=== PATIENT | female | born 1935 | race African-American/Black ===

== ENCOUNTER → 2017-01-19 | Outpatient (CLI) | payer MEDICARE, MEDICAID ==
[2017-01-19 11:23] LABS: HEMATOCRIT 37.4 % (36.0-47.0); HGB HCT DIFFERENCE -1.4; MEAN CORPUSCULAR HEMOGLOBIN 29.6 pg (27.0-33.4); MEAN CORPUSCULAR VOLUME 92 fl (80-97); RED BLOOD COUNT 4.05 10^6/uL (3.72-5.28); RED CELL DISTRIBUTION WIDTH 14.2 % (11.5-14.0); WHITE BLOOD COUNT 5.2 10^3/uL (4.0-10.5)
[2017-01-19 11:49] LABS: ANION GAP 14 (5-19); BLOOD UREA NITROGEN 16 mg/dL (7-20); CALCIUM 10.2 mg/dL (8.4-10.2); CARBON DIOXIDE 25 mmol/L (22-30); CHLORIDE 105 mmol/L (98-107); CREATININE RESULT 0.83 mg/dL (0.52-1.25); GLUCOSE 103 mg/dL (75-110); SODIUM 143.5 mmol/L (137-145)
== END ==
LOC: OD 10:39
PROVIDERS: ATTEND Internal Medicine Nephrology
DX: I12.9 Hypertensive chronic kidney disease with stage 1 through stage 4 chronic kidney disease, or unspecified chronic kidney disease (principal); N18.2 Chronic kidney disease, stage 2 (mild); E11.9 Type 2 diabetes mellitus without complications; D64.9 Anemia, unspecified
CPT/HCPCS: 36415; 80048; 85027

== ENCOUNTER → 2017-02-26 | Outpatient (CLI) | payer MEDICARE, MEDICAID ==
[2017-02-26 13:09] LABS: ANION GAP 15 (5-19); BLOOD UREA NITROGEN 11 mg/dL (7-20); CALCIUM 9.8 mg/dL (8.4-10.2); CARBON DIOXIDE 26 mmol/L (22-30); CHLORIDE 103 mmol/L (98-107); CREATININE RESULT 0.73 mg/dL (0.52-1.25); GLUCOSE 222 mg/dL (75-110); POTASSIUM 4.2 mmol/L (3.6-5.0); SODIUM 143.7 mmol/L (137-145)
== END ==
LOC: OD 10:32
PROVIDERS: ATTEND Internal Medicine Nephrology
DX: N18.2 Chronic kidney disease, stage 2 (mild) (principal); I12.9 Hypertensive chronic kidney disease with stage 1 through stage 4 chronic kidney disease, or unspecified chronic kidney disease; E11.9 Type 2 diabetes mellitus without complications; D64.9 Anemia, unspecified
CPT/HCPCS: 36415; 80048

== ENCOUNTER → 2017-03-23 | Outpatient (CLI) | payer MEDICARE, MEDICAID ==
--- NOTE | 2017-03-23 16:29 | WOMENS IMAGING REPORT ---
EXAM DESCRIPTION: 3D SCREENING MAMMO BILAT COMPLETED DATE/TIME: 03/23/2017 1:52 pm REASON FOR STUDY: SCREENING MAMMO Z12.31 ENCNTR SCREEN MAMMOGRAM FOR MALIGNANT NEOPLASM OF LUIS COMPARISON: Multiple since 2008 TECHNIQUE: Standard craniocaudal and mediolateral oblique views of each breast recorded using digita l acquisition and breast tomosynthesis. LIMITATIONS: None. FINDINGS: Findings present which are benign by mammographic criteria. No suspicious masses, calcifi cations or architectural distortion. Pertinent benign findings: Stable benign breast parenchymal calcifications and nodules bilaterally. Read with the assistance of CAD. .[facility] - R2 Cenova Version 1.3 .[facility] - R2 Cenova Version 1.3 .[facility] - R2 Cenova Version 2.4 .[facility] - R2 Cenova Version 2.4 .[facility] - R2 Seed Collector Version 9.2 Benign mammographic findings may include one or more of the following: Smooth masses, popcorn/rim/co arse calcifications, asymmetries, post-procedure changes, and lesions with long-standing stability. IMPRESSION: BENIGN MAMMOGRAPHIC FINDINGS. BIRADS 2 BREAST DENSITY: c. The breasts are heterogeneously dense, which may obscure small masses. BIRAD: 2 BENIGN FINDING(S) RECOMMENDATION: RECOMMENDATION: ROUTINE SCREENING Please continue yearly screening tomosynthesis in March 2018 COMMENT: The patient has been notified of the results by letter per SA requirements. Additional no tification policies are in place for contacting patient with suspicious or incomplete findings. Quality ID #[id number]: The [place] [employer] recommends an annual screening mammogram for women aged 40 years or over. This facility utilizes a reminder system to ensure that all patients receive reminder letters, and/or direct phone calls for appointments. This includes reminders for routine scr eening mammograms, diagnostic mammograms, or other Breast Imaging Interventions when appropriate. Th is patient will be placed in the appropriate reminder system. The [place] [employer] (ACR) has developed recommendations for screening MRI of the breast s in certain patient populations, to be used in conjunction with mammography. Breast MRI surveillanc e may be appropriate for women with more than 20% lifetime risk of developing breast cancer as deter mined by genetic testing, significant family history of the disease, or history of mantle radiation f or Hodgkins Disease. ACR Practice Guidelines 2008. DBT Technology DBT is a type of tomographic mammography. With conventional mammography, overlapping breast tissue ma y make lesions difficult to detect, even with good compression. DBT uses an x-ray tube that rotates a round the breast, taking images at different angles. These images are then combined to create thin sl ices of the breast that the radiologist can view as a 3D reconstruction. The [employer] unit can perform full-field digital mammograms (2D imaging); or DBT (3D imaging); or both, in a combination mode that quickly performs both the mammogram and the tomosynthesis scan while the breast is still compressed. RS 6045F: Fluoroscopic imaging is not utilized for breast tomosynthesis. TECHNICAL DOCUMENTATION: FINDING NUMBER: (1) ASSESSMENT: (1) JOB ID: [id number] [employer]- All Rights Reserved
== END ==
LOC: WI 11:32
PROVIDERS: ATTEND Family Medicine
DX: Z12.31 Encounter for screening mammogram for malignant neoplasm of breast (principal)
CPT/HCPCS: 77063; G0202; 77067

== ENCOUNTER 2017-06-15 09:30 | Emergency (ER) | payer MEDICARE, MEDICAID ==
[2017-06-15] MEDS ORDERED: HYDRALAZINE HCL 50 MG TABLET PO ONE (10:02)
--- NOTE | 2017-06-15 10:34 | ER Document Report ---
ED General - General Chief Complaint: High Blood Pressure Stated Complaint: HIGH BLOOD PRESSURE Time Seen by Provider: 06/15/17 10:03 TRAVEL OUTSIDE OF THE [place] IN LAST 30 DAYS: No - HPI Patient complains to provider of: High blood pressure Notes: Patient coming in for elevated blood pressure. Patient otherwise denies any other symptoms however is just concerned that her blood pressure is elevated. Patient states recent changes to her blood pressure last week by her PCP states that she was added states that clonidine was added to her blood pressure regimen. Otherwise patient was recently admitted to the hospital diagnosis of elevated blood pressure sent home on hydralazine combination losartan and amlodipine. At this time only see the valsartan medication and now clonidine for hypertension patient denies any other symptoms denies chest pain head pain shortness of breath - Related Data Allergies/Adverse Reactions: labetalol [Labetalol] Adverse Reaction (Verified 06/15/17 09:35) pronounced bradycardia--30's Past Medical History - Social History Smoking Status: Former Smoker Family History: Reviewed & Not Pertinent, CAD, DM, Hyperlipidemia, Hypertension Patient has suicidal ideation: No Patient has homicidal ideation: No - Past Medical History Cardiac Medical History: Reports: Hx Hypercholesterolemia, Hx Hypertension Endocrine Medical History: Reports: Hx Diabetes Mellitus Type 2 Renal/ Medical History: Denies: Hx Peritoneal Dialysis Psychiatric Medical History: Denies: Hx Depression - Immunizations Hx Diphtheria, Pertussis, Tetanus Vaccination: Yes Review of Systems - Review of Systems Constitutional: Other - Elevated blood pressure EENT: No symptoms reported Cardiovascular: No symptoms reported Respiratory: No symptoms reported Gastrointestinal: No symptoms reported Genitourinary: No symptoms reported Female Genitourinary: No symptoms reported Musculoskeletal: No symptoms reported Skin: No symptoms reported Hematologic/Lymphatic: No symptoms reported Neurological/Psychological: No symptoms reported Physical Exam - Vital signs Vitals: Temp Pulse Resp BP Pulse Ox 97.6 F 74 20 221/83 H 98 06/15/17 09:37 06/15/17 09:37 06/15/17 09:37 06/15/17 09:37 06/15/17 09:37 Interpretation: Hypertensive - General General appearance: Appears well, Alert - HEENT Head: Normocephalic, Atraumatic Eyes: Normal Pupils: PERRL - Respiratory Respiratory status: No respiratory distress Chest status: Nontender Breath sounds: Normal Chest palpation: Normal - Cardiovascular Rhythm: Regular Heart sounds: Normal auscultation Murmur: No - Abdominal Inspection: Normal Distension: No distension Bowel sounds: Normal Tenderness: Nontender Organomegaly: No organomegaly - Back Back: Normal, Nontender - Extremities General upper extremity: Normal inspection, Nontender, Normal color, Normal ROM , Normal temperature General lower extremity: Normal inspection, Nontender, Normal color, Normal ROM , Normal temperature, Normal weight bearing. No: Reynaldo's sign - Neurological Neuro grossly intact: Yes Cognition: Normal Orientation: AAOx4 [employer] Coma Scale Eye Opening: Spontaneous [employer] Coma Scale Verbal: Oriented [employer] Coma Scale Motor: Obeys Commands [employer] Coma Scale Total: 15 Speech: Normal Motor strength normal: LUE, RUE, LLE, RLE Sensory: Normal - Psychological Associated symptoms: Normal affect, Normal mood - Skin Skin Temperature: Warm Skin Moisture: Dry Skin Color: Normal Course - Re-evaluation Re-evalutation: 06/15/17 15:19 Patient with asymptomatic hypertension patient was given a dose of hydralazine which did decrease her blood pressure patient still notes now that she feels better that her blood pressure is lower she is less concerned about it is instructed to follow-up with her primary care physician for further evaluation of her blood pressure and her blood pressure regimen. - Vital Signs Vital signs: Temp Pulse Resp BP Pulse Ox 97.6 F 74 18 185/71 H 97 06/15/17 09:37 06/15/17 09:37 06/15/17 11:01 06/15/17 11:01 06/15/17 11:01 Discharge - Discharge Clinical Impression: Hypertension Qualifiers: Hypertension type: essential hypertension Qualified Code(s): I10 - Essential ( primary) hypertension Disposition: HOME, SELF-CARE Instructions: High Blood Pressure, Requiring Treatment ([facility]) Additional Instructions: Your examination today was normal except for your elevated blood pressure. This has decreased with medications. Highly recommend she follow-up with your primary care physician for further evaluation of your blood pressure. Referrals: JAY COBB MD [Primary Care Provider] - Follow up as needed
[2017-06-15 11:19] VITALS: BP 185/71
== END 2017-06-15 11:27 | disposition home or self-care (01) ==
LOC: ER 09:30
DX: I10 Essential (primary) hypertension (principal); Z79.899 Other long term (current) drug therapy; Z87.891 Personal history of nicotine dependence
CPT/HCPCS: 99283; A9270

== ENCOUNTER → 2017-07-31 | Outpatient (CLI) | payer MEDICARE, MEDICAID ==
[2017-07-31 13:18] LABS: HEMATOCRIT 36.8 % (36.0-47.0); MEAN CORPUSCULAR HEMOGLOBIN 29.7 pg (27.0-33.4); MEAN CORPUSCULAR HGB CONC 32.8 g/dL (32.0-36.0); MEAN CORPUSCULAR VOLUME 91 fl (80-97); PLATELET COUNT 257 10^3/uL (150-450); RED BLOOD COUNT 4.05 10^6/uL (3.72-5.28); RED CELL DISTRIBUTION WIDTH 14.6 % (11.5-14.0)
[2017-07-31 13:46] LABS: ANION GAP 15 (5-19); BLOOD UREA NITROGEN 17 mg/dL (7-20); CALCIUM 10.6 mg/dL (8.4-10.2); CARBON DIOXIDE 26 mmol/L (22-30); CHLORIDE 103 mmol/L (98-107); GLUCOSE 77 mg/dL (75-110); MAGNESIUM 1.8 mg/dL (1.6-2.3); POTASSIUM 4.2 mmol/L (3.6-5.0); SODIUM 143.7 mmol/L (137-145)
[2017-08-01 12:14] LABS: APPEARANCE,URINE SLIGHTLY-CLOUDY; BILIRUBIN,URINE NEGATIVE (NEGATIVE); COLOR,URINE YELLOW; GLUCOSE, URINE NEGATIVE (NEGATIVE); KETONES,URINE NEGATIVE (NEGATIVE); LEUKOCYTE ESTERASE,URINE TRACE (NEGATIVE); NITRITE,URINE NEGATIVE (NEGATIVE); PROTEIN,URINE NEGATIVE (NEGATIVE); URINE SPECIFIC GRAVITY 1.011; UROBILINOGEN,URINE NEGATIVE mg/dL (<2.0)
== END ==
LOC: OD 12:14
PROVIDERS: ATTEND Internal Medicine Nephrology
DX: I12.9 Hypertensive chronic kidney disease with stage 1 through stage 4 chronic kidney disease, or unspecified chronic kidney disease (principal); N18.3 Chronic kidney disease, stage 3 (moderate); E87.5 Hyperkalemia; E11.9 Type 2 diabetes mellitus without complications
CPT/HCPCS: 36415; 80048; 81001; 83735; 85027

== ENCOUNTER → 2018-01-14 | Outpatient (CLI) | payer MEDICARE, MEDICAID ==
[2018-01-14 10:22] LABS: HEMATOCRIT 36.3 % (36.0-47.0); HEMOGLOBIN 12.2 g/dL (12.0-15.5); MEAN CORPUSCULAR HEMOGLOBIN 30.1 pg (27.0-33.4); MEAN CORPUSCULAR HGB CONC 33.6 g/dL (32.0-36.0); MEAN CORPUSCULAR VOLUME 90 fl (80-97); PLATELET COUNT 247 10^3/uL (150-450); RED BLOOD COUNT 4.05 10^6/uL (3.72-5.28); RED CELL DISTRIBUTION WIDTH 14.3 % (11.5-14.0); WHITE BLOOD COUNT 5.1 10^3/uL (4.0-10.5)
[2018-01-14 10:32] LABS: APPEARANCE,URINE SLIGHTLY-CLOUDY; BILIRUBIN,URINE NEGATIVE (NEGATIVE); COLOR,URINE YELLOW; GLUCOSE, URINE NEGATIVE (NEGATIVE); KETONES,URINE NEGATIVE (NEGATIVE); LEUKOCYTE ESTERASE,URINE TRACE (NEGATIVE); NITRITE,URINE NEGATIVE (NEGATIVE); PROTEIN,URINE NEGATIVE (NEGATIVE); URINE SPECIFIC GRAVITY 1.015; UROBILINOGEN,URINE NEGATIVE mg/dL (<2.0)
[2018-01-14 10:53] LABS: ANION GAP 14 (5-19); BLOOD UREA NITROGEN 20 mg/dL (7-20); CALCIUM 10.6 mg/dL (8.4-10.2); CARBON DIOXIDE 28 mmol/L (22-30); CHLORIDE 105 mmol/L (98-107); GLUCOSE 114 mg/dL (75-110); POTASSIUM 4.9 mmol/L (3.6-5.0); SODIUM 146.6 mmol/L (137-145)
== END ==
LOC: OD 09:37
PROVIDERS: ATTEND Internal Medicine Nephrology
DX: I12.9 Hypertensive chronic kidney disease with stage 1 through stage 4 chronic kidney disease, or unspecified chronic kidney disease (principal); N18.2 Chronic kidney disease, stage 2 (mild); E87.5 Hyperkalemia; D64.9 Anemia, unspecified
CPT/HCPCS: 36415; 80048; 81001; 83735; 85027

== ENCOUNTER → 2018-05-14 | Outpatient (CLI) | payer MEDICARE, MEDICAID ==
--- NOTE | 2018-05-14 13:31 | WOMENS IMAGING REPORT ---
EXAM DESCRIPTION: BILAT SCREENING MAMMO W/CAD COMPLETED DATE/TIME: 05/14/2018 12:55 pm REASON FOR STUDY: SCREENING MAMMO Z12.31 ENCNTR SCREEN MAMMOGRAM FOR MALIGNANT NEOPLASM OF LUIS COMPARISON: [id number] TECHNIQUE: Standard craniocaudal and mediolateral oblique views of each breast recorded using digita l acquisition. LIMITATIONS: None. FINDINGS: Findings present which are benign by mammographic criteria. No suspicious masses, calcifi cations or architectural distortion. Pertinent benign findings: Stable calcifications. Read with the assistance of CAD. .[facility] - R2 Cenova Version 1.3 .[facility] - R2 Cenova Version 1.3 .[facility] - R2 Cenova Version 2.4 .[facility] [place] - R2 Cenova Version 2.4 .[facility] - R2 Pier[employer] Specialist Version 9.2 Benign mammographic findings may include one or more of the following: Smooth masses, popcorn/rim/co arse calcifications, asymmetries, post-procedure changes, and lesions with long-standing stability. IMPRESSION: BENIGN MAMMOGRAPHIC FINDINGS. BIRADS 2 BREAST DENSITY: c. The breasts are heterogeneously dense, which may obscure small masses. BIRAD: 2 BENIGN FINDING(S) RECOMMENDATION: ROUTINE SCREENING COMMENT: The patient has been notified of the results by letter per SA requirements. Additional no tification policies are in place for contacting patient with suspicious or incomplete findings. Quality ID #[id number]: The [place] [employer] recommends an annual screening mammogram for women aged 40 years or over. This facility utilizes a reminder system to ensure that all patients receive reminder letters, and/or direct phone calls for appointments. This includes reminders for routine scr eening mammograms, diagnostic mammograms, or other Breast Imaging Interventions when appropriate. Th is patient will be placed in the appropriate reminder system. The [place] [employer] (ACR) has developed recommendations for screening MRI of the breast s in certain patient populations, to be used in conjunction with mammography. Breast MRI surveillanc e may be appropriate for women with more than 20% lifetime risk of developing breast cancer as deter mined by genetic testing, significant family history of the disease, or history of mantle radiation f or Hodgkins Disease. ACR Practice Guidelines 2008. TECHNICAL DOCUMENTATION: FINDING NUMBER: (1) ASSESSMENT: (1) JOB ID: [id number] [employer]- All Rights Reserved Reading location - IP/workstation name: [email or web address]
== END ==
LOC: WI 14:25
PROVIDERS: ATTEND Family Medicine
DX: Z12.31 Encounter for screening mammogram for malignant neoplasm of breast (principal)
CPT/HCPCS: 77067

== ENCOUNTER 2018-12-01 12:46 | Inpatient (IN) | payer MEDICARE, MEDICAID ==
[2018-12-01 13:41] LABS: ABSOLUTE EOSINOPHILS # (AUTO) 0.1 10^3/uL (0.0-0.6); ABSOLUTE LYMPHOCYTES (AUTO) 1.7 10^3/uL (0.5-4.7); ABSOLUTE MONOCYTES (AUTO) 0.6 10^3/uL (0.1-1.4); ABSOLUTE NEUT (AUTO) 2.6 10^3/uL (1.7-8.2); BASOPHILS % (AUTO) 0.7 % (0-2); EOSINOPHILS % (AUTO) 1.7 % (0-6); HEMATOCRIT 36.7 % (36.0-47.0); HEMOGLOBIN 12.1 g/dL (12.0-15.5); LYMPHOCYTES % (AUTO) 33.6 % (13-45); MEAN CORPUSCULAR HEMOGLOBIN 29.8 pg (27.0-33.4); MEAN CORPUSCULAR HGB CONC 32.8 g/dL (32.0-36.0); MEAN CORPUSCULAR VOLUME 91 fl (80-97); MONOCYTES % (AUTO) 12.2 % (3-13); PLATELET COUNT 265 10^3/uL (150-450); RED BLOOD COUNT 4.05 10^6/uL (3.72-5.28); RED CELL DISTRIBUTION WIDTH 14.6 % (11.5-14.0); SEGMENTED NEUTROPHILS % (AUTO) 51.8 % (42-78); TOTAL CELLS COUNTED % (AUTO) 100 %
[2018-12-01 13:46] LABS: ALANINE AMINOTRANSFERASE 9 U/L (9-52); ALBUMIN 4.1 g/dL (3.5-5.0); ALKALINE PHOSPHATASE 76 U/L (38-126); ANION GAP 14 (5-19); ASPARTATE AMINO TRANSFERASE 19 U/L (14-36); BILIRUBIN,DIRECT 0.2 mg/dL (0.0-0.4); BILIRUBIN,TOTAL 0.5 mg/dL (0.2-1.3); BLOOD UREA NITROGEN 16 mg/dL (7-20); CALCIUM 10.4 mg/dL (8.4-10.2); CARBON DIOXIDE 27 mmol/L (22-30); CHLORIDE 105 mmol/L (98-107); CREATINE KINASE 41 U/L (30-135); GLUCOSE 194 mg/dL (75-110); SODIUM 145.7 mmol/L (137-145); TOTAL PROTEIN 8.2 g/dL (6.3-8.2)
[2018-12-01 13:57] LABS: CREATINE KINASE MB 0.42 ng/mL (<4.55)
[2018-12-01 13:59] LABS: TROPONIN I < 0.012 ng/mL
--- NOTE | 2018-12-01 14:20 | RADIOLOGY REPORT (SQ) ---
EXAM DESCRIPTION: CHEST SINGLE VIEW COMPLETED DATE/TIME: 12/01/2018 2:04 pm REASON FOR STUDY: weakness, syncope COMPARISON: 2014 NUMBER OF VIEWS: One view. TECHNIQUE: Single frontal radiographic view of the chest acquired. LIMITATIONS: None. FINDINGS: LUNGS AND PLEURA: Low volumes with patchy infiltrate versus volume loss left lower lobe. No pneumothorax. MEDIASTINUM AND HILAR STRUCTURES: No masses. Contour normal. HEART AND VASCULAR STRUCTURES: Heart normal in size. Normal vasculature. BONES: No acute findings. HARDWARE: None in the chest. OTHER: No other significant finding. IMPRESSION: Left basilar subsegmental atelectasis/ infiltrate TECHNICAL DOCUMENTATION: JOB ID: [id number] [employer]- All Rights Reserved Reading location - IP/workstation name: [email or web address]
--- NOTE | 2018-12-01 14:37 | ER Document Report ---
ED Dizziness/Weakness - General Chief Complaint: Weakness Stated Complaint: SYNCOPE Time Seen by Provider: 12/01/18 12:56 Mode of Arrival: Medic Information source: Patient, Relative - Daughter Notes: Patient is an 83-year-old female presenting to the emergency department chief complaint of dizziness and weakness that started yesterday. Patient reports she was feeling mildly improved this morning so she decided to go to [facility]. At [facility] she apparently had a syncopal episode. Per family at bedside states that someone caught her so she did not strike her head. Patient denies any fevers, nausea, vomiting or diarrhea. Patient denies any chest pain or shortness of breath. TRAVEL OUTSIDE OF THE [place] IN LAST 30 DAYS: No - Related Data Allergies/Adverse Reactions: labetalol [Labetalol] Adverse Reaction (Verified 06/15/17 09:35) pronounced bradycardia--30's Past Medical History - General Information source: Patient - Social History Smoking Status: Never Smoker Frequency of alcohol use: None Drug Abuse: None Family History: Reviewed & Not Pertinent, CAD, DM, Hyperlipidemia, Hypertension Patient has suicidal ideation: No Patient has homicidal ideation: No - Past Medical History Cardiac Medical History: Reports: Hx Hypercholesterolemia, Hx Hypertension Endocrine Medical History: Reports: Hx Diabetes Mellitus Type 2 Renal/ Medical History: Denies: Hx Peritoneal Dialysis Psychiatric Medical History: Denies: Hx Depression - Immunizations Hx Diphtheria, Pertussis, Tetanus Vaccination: Yes Review of Systems - Review of Systems Constitutional: Weakness EENT: No symptoms reported Cardiovascular: Dizziness Respiratory: No symptoms reported Gastrointestinal: No symptoms reported Genitourinary: No symptoms reported Female Genitourinary: No symptoms reported Musculoskeletal: No symptoms reported Skin: No symptoms reported Hematologic/Lymphatic: No symptoms reported Neurological/Psychological: No symptoms reported Physical Exam - Vital signs Vitals: Temp Resp 97.5 F 19 12/01/18 13:01 12/01/18 13:01 - Notes Notes: PHYSICAL EXAMINATION: GENERAL: Well-appearing, well-nourished and in no acute distress. HEAD: Atraumatic, normocephalic. EYES: Pupils equal round and reactive to light, extraocular movements intact, conjunctiva are normal. ENT: Nares patent, oropharynx clear without exudates. Moist mucous membranes. NECK: Normal range of motion, supple without lymphadenopathy LUNGS: Breath sounds clear to auscultation bilaterally and equal. No wheezes rales or rhonchi. HEART: Regular rate and rhythm without murmurs ABDOMEN: Soft, nontender, nondistended abdomen. No guarding, no rebound. No masses appreciated. Female : deferred Musculoskeletal: Normal range of motion, no pitting or edema. No cyanosis. NEUROLOGICAL: Cranial nerves grossly intact. Normal speech. Normal sensory, motor exams PSYCH: Normal mood, normal affect. SKIN: Warm, Dry, normal turgor, no rashes or lesions noted. Course - Re-evaluation Re-evalutation: Patient appears well, nontoxic and is alert and interactive. Patient reports feeling dizziness since yesterday. EKG was reviewed and interpreted by me, EKG shows a sinus rhythm, rate of 71, QTc 413, no ST segment elevations or depressions to suggest ischemia. CBC and CMP are unremarkable, troponin is negative. Chest x-ray shows possible left basilar infiltrate. Will start patient on Rocephin and azithromycin IV. Plan to call hospitalist for admiss ion. Patient continues to feel well, states she feels better since arrival and after receiving 500 mL's of IV fluids. She has still not provided us a urine sample. Head CT was ordered and is negative, patient accepted for admission to [facility]. - Vital Signs Vital signs: Temp Pulse Resp BP Pulse Ox 97.7 F 63 18 162/71 H 100 12/02/18 07:53 12/02/18 08:00 12/02/18 08:00 12/02/18 08:00 12/02/18 08:00 - Laboratory Result Diagrams: 12/02/18 06:15 12/02/18 06:15 Laboratory results interpreted by me: 12/01/18 12/01/18 13:06 13:06 RDW 14.6 H Sodium 145.7 H Creatinine 1.58 H Est GFR ( Amer) 38 L Est GFR (Non-Af Amer) 31 L Glucose 194 H Calcium 10.4 H Discharge - Discharge Clinical Impression: Pneumonia Qualifiers: Pneumonia type: due to unspecified organism Laterality: left Lung location: unspecified part of lung Qualified Code(s): J18.9 - Pneumonia, unspecified organism Syncopal episodes Qualifiers: Syncope type: unspecified Qualified Code(s): R55 - Syncope and collapse Condition: Stable Disposition: ADMITTED INPATIENT Admitting Provider: Funmilayo (Hospitalist) Unit Admitted: IMCU
[2018-12-01] MEDS ORDERED: AZITHROMYCIN INJ 500 MG VIAL IV ONE (14:41)
[2018-12-01] MEDS ORDERED: CEFTRIAXONE 1 GM/D5W RTU 1 GM/50 ML RTUPB IV ONE (14:41)
--- NOTE | 2018-12-01 15:25 | RADIOLOGY REPORT (SQ) ---
EXAM DESCRIPTION: CT HEAD WITHOUT COMPLETED DATE/TIME: 12/01/2018 3:14 pm REASON FOR STUDY: syncope COMPARISON: 2014 TECHNIQUE: Axial images acquired through the brain without intravenous contrast. Images reviewed wi th bone, brain and subdural windows. Images stored on PACS. All CT scanners at this facility use dose modulation, iterative reconstruction, and/or weight based d osing when appropriate to reduce radiation dose to as low as reasonably achievable (ALARA). [facility]: Dose Right [facility]: SureCare [facility]: Dose Right [facility]: Teradose 4D [facility]: [employer] RADIATION DOSE: CT Rad equipment meets quality standard of care and radiation dose reduction techniq ues were employed. CTDIvol: 53.2 mGy. DLP: 1097 mGy-cm. mGy. LIMITATIONS: None. FINDINGS: VENTRICLES: Normal size and contour. CEREBRUM: No mass effect. No hemorrhage. No midline shift. Normal hector/white matter differentiatio n. No evidence for acute territorial infarction. CEREBELLUM: No mass effect. No hemorrhage. No alteration of density. No evidence for acute infarct ion. EXTRAAXIAL SPACES: Chronic asymmetric prominence of CSF density fluid along the left cerebrum. This is unchanged. Probable mild chronic hygroma or asymmetric atrophy. ORBITS AND GLOBE: Symmetrical contour of the globes. CALVARIUM: No depressed skull fracture. PARANASAL SINUSES: No air-fluid level. SOFT TISSUES: No hematoma. IMPRESSION: Chronic changes. No acute intracranial abnormality. TECHNICAL DOCUMENTATION: JOB ID: [id number] [id number]: Final reports with documentation of one or more dose reduction techniques (e.g., Automate d exposure control, adjustment of the mA and/or kV according to patient size, use of iterative recons truction technique) 2010 [employer]- All Rights Reserved Reading location - IP/workstation name: [email or web address]
[2018-12-01] MEDS ORDERED: NORMAL SALINE 1000 ML 1,000 ML IV ONE (15:29)
[2018-12-01 19:28] LABS: APPEARANCE,URINE CLOUDY; BILIRUBIN,URINE NEGATIVE (NEGATIVE); GLUCOSE, URINE NEGATIVE (NEGATIVE); KETONES,URINE NEGATIVE (NEGATIVE); LEUKOCYTE ESTERASE,URINE MODERATE (NEGATIVE); NITRITE,URINE NEGATIVE (NEGATIVE); PROTEIN,URINE 30 mg/dL (NEGATIVE); URINE SPECIFIC GRAVITY 1.015; UROBILINOGEN,URINE NEGATIVE mg/dL (<2.0)
[2018-12-01 19:30] LABS: COLOR,URINE DARK YELLOW
--- NOTE | 2018-12-01 19:31 | RADIOLOGY REPORT (SQ) ---
EXAM DESCRIPTION: MRI HEAD WITHOUT COMPLETED DATE/TIME: 12/01/2018 6:39 pm REASON FOR STUDY: eval for cva COMPARISON: CT from earlier. TECHNIQUE: Multiplanar imaging includes non-contrasted T1, T2, FLAIR, and Diffusion with ADC map seq uences. Images stored on PACS. LIMITATIONS: None. FINDINGS: ANATOMY: No anomalies. Normal vascular flow voids. Pituitary fossa normal. CSF SPACES: Chronic asymmetric left cerebral atrophy or hygroma, as seen previously. No extra-axial hemorrhage or mass. CEREBRUM: A few high-signal intensity lesions scattered throughout the white matter on FLAIR imaging with distribution suggesting chronic micro-vascular ischemic change. Sulci and gyri normal in size a nd contour. No evidence of hemorrhage, mass or extraaxial fluid collection. POSTERIOR FOSSA: No signal alteration. No hemorrhage. No edema, masses or mass effect. Internal levar tory canals, cerebello-pontine angles, mastoids normal. DIFFUSION: Negative for acute or sub-acute infarction. ORBITS: No masses. Globes normal. PARANASAL SINUSES: No fluid levels. Mucosa normal. OTHER: No other significant finding. IMPRESSION: No acute intracranial abnormality. Chronic changes. No recent CVA. EVIDENCE OF ACUTE STROKE: NO. TECHNICAL DOCUMENTATION: JOB ID: [id number] [employer]- All Rights Reserved Reading location - IP/workstation name: [email or web address]
[2018-12-01] MEDS ORDERED: DEXTROSE 40% GEL 15 GM TUBE PO PRN ×2 (20:20)
[2018-12-01] MEDS ORDERED: GLUCAGON,HUMAN RECOMB 1 MG INJ IM PRN (20:20)
[2018-12-01] MEDS ORDERED: DEXTROSE 50%-WATER 25 GM/50 ML DISP.SYRIN IV PRN ×2 (20:20)
[2018-12-01] MEDS ORDERED: HYDRALAZINE HCL INJ/PF 20 MG/1 ML SDV IV PRN (20:37)
--- NOTE | 2018-12-01 20:45 | PDOC H&P ---
History of Present Illness Admission Date/PCP: 12/01/18 16:16 JAY COBB MD Patient complains of: SYNCOPE History of Present Illness: KEELEY COREA is a 83 year old female with a PMH of HTN, HLD, DM, R carotid endarterectomy. She presented to the ED following a syncopal episode while at [facility] today. The patient reports weakness and fatigue for the last 48 hours. She went to [facility] but quickly began to feel ill, she asked family to take her home. While exiting the dru[facility] the patient became unconscious, her family was able to catch her and gently put her on the ground. No head trauma or seizure- like activity. Upon arrival to the ED, the patient's laboratory studies reveal HYPERnatremia (Na 145) and ABY (Creatinine 1.5). Cardiac enzymes and all other labs were relatively benign. Head CT normal. EKG shows NSR. CXR shows possible LLL PNA. The patient was started on Azithromycin and Rocephin for community Acquired PNA. She was admitted to the hospitalist service for PNA and syncope workup. On exam, the patient is awake an oriented. 5/5 strength in all extremities. No facial droop, no pronator drift, no hand/eye coordination deficits. Lungs are CTA. S1S2. No peripheral edema noted. Past Medical History Cardiac Medical History: Reports: Hyperlipidema, Hypertension Endocrine Medical History: Reports: Diabetes Mellitus Type 2 Psychiatric Medical History: Denies: Depression Past Surgical History Past Surgical History: Reports: None Social History Information Source: Patient Lives with: Family Smoking Status: Never Smoker Frequency of Alcohol Use: None Hx Recreational Drug Use: No Drugs: None Hx Prescription Drug Abuse: No - Advance Directive Resuscitation Status: Full Code Family History Family History: Reviewed & Not Pertinent, CAD, DM, Hyperlipidemia, Hypertension Parental Family History Reviewed: Yes Children Family History Reviewed: Yes Sibling(s) Family History Reviewed.: Yes Medication/Allergy Home Medications: Metformin HCl [Glucophage] 1,000 mg PO BID 05/31/14 Amlodipine Besylate [Norvasc 10 mg Tablet] 10 mg PO QHS #30 tablet 12/25/14 Atorvastatin Calcium [Lipitor 10 mg Tablet] 10 mg PO QHS 12/01/18 Clonidine HCl [Catapres 0.2 mg Tablet] 0.2 mg PO BID 12/01/18 Ubidecarenone/Vit E Acet [Co Q-10 100 mg Softgel] 1 each PO DAILY 12/01/18 Allergies/Adverse Reactions: labetalol [Labetalol] Adverse Reaction (Verified 06/15/17 09:35) pronounced bradycardia--30's Review of Systems Constitutional: PRESENT: fatigue, weakness. ABSENT: fever(s), headache(s) Eyes: ABSENT: visual disturbances Ears: ABSENT: hearing changes Nose, Mouth, and Throat: ABSENT: headache(s), sore throat Cardiovascular: ABSENT: chest pain, dyspnea on exertion, edema, orthropnea, palpitations Respiratory: ABSENT: cough, dyspnea Gastrointestinal: ABSENT: abdominal pain, nausea, vomiting Genitourinary: ABSENT: dysuria Musculoskeletal: PRESENT: muscle weakness Integumentary: ABSENT: diaphoresis Neurological: PRESENT: syncope, weakness. ABSENT: paresthesias Psychiatric: ABSENT: anxiety, depression Endocrine: ABSENT: cold intolerance, heat intolerance Physical Exam Vital Signs: Temp Pulse Resp BP Pulse Ox 97.5 F 65 18 135/78 H 100 12/01/18 13:01 12/01/18 16:00 12/01/18 16:02 12/01/18 16:02 12/01/18 16:02 Intake & Output 11/30/18 12/01/18 12/02/18 06:59 06:59 06:59 Intake Total 1050 Balance 1050 Weight 74.843 kg General appearance: PRESENT: well-developed, well-nourished Head exam: PRESENT: atraumatic Eye exam: PRESENT: conjunctiva pink, PERRLA Mouth exam: PRESENT: moist, tongue midline Teeth exam: PRESENT: other - dentures Neck exam: PRESENT: full ROM Respiratory exam: PRESENT: clear to auscultation christina, symmetrical, unlabored Cardiovascular exam: PRESENT: RRR Pulses: PRESENT: normal radial pulses, normal dorsalis pedis pul Vascular exam: PRESENT: normal capillary refill GI/Abdominal exam: PRESENT: normal bowel sounds, soft. ABSENT: distended, tenderness Rectal exam: PRESENT: deferred Extremities exam: PRESENT: full ROM. ABSENT: pedal edema Musculoskeletal exam: PRESENT: full ROM, normal inspection. ABSENT: deformity Neurological exam: PRESENT: alert, awake, oriented to person, oriented to place, oriented to time, oriented to situation Psychiatric exam: PRESENT: appropriate affect Skin exam: PRESENT: dry, intact, normal color Results Laboratory Results: 12/01/18 13:06 12/01/18 13:06 12/01/18 12/01/18 13:06 13:06 WBC 5.0 RBC 4.05 Hgb 12.1 Hct 36.7 MCV 91 MCH 29.8 MCHC 32.8 RDW 14.6 H Plt Count 265 Seg Neutrophils % 51.8 Lymphocytes % 33.6 Monocytes % 12.2 Eosinophils % 1.7 Basophils % 0.7 Absolute Neutrophils 2.6 Absolute Lymphocytes 1.7 Absolute Monocytes 0.6 Absolute Eosinophils 0.1 Absolute Basophils 0.0 Sodium 145.7 H Potassium 4.0 Chloride 105 Carbon Dioxide 27 Anion Gap 14 BUN 16 Creatinine 1.58 H Est GFR ( Amer) 38 L Est GFR (Non-Af Amer) 31 L Glucose 194 H Calcium 10.4 H Total Bilirubin 0.5 AST 19 ALT 9 Alkaline Phosphatase 76 Total Protein 8.2 Albumin 4.1 12/01/18 12/01/18 13:06 13:06 Creatine Kinase 41 CK-MB (CK-2) 0.42 Troponin I < 0.012 Impressions: Chest X-Ray 12/01/18 13:08 IMPRESSION: Left basilar subsegmental atelectasis/ infiltrate Head CT 12/01/18 15:01 IMPRESSION: Chronic changes. No acute intracranial abnormality. Status: Imported from PACS Assessment and Plan - Diagnosis (1) Syncope Qualifiers: Syncope type: unspecified Qualified Code(s): R55 - Syncope and collapse Is this a current diagnosis for this admission?: Yes Plan: LOC while at [facility] today Possibly due to dehydration given her hypernatremia, ABY and possible infection No head trauma Head CT negative Head MRI pending Carotid doppler pending Admit to [facility] exam q4h (2) HTN (hypertension) Qualifiers: Hypertension type: essential hypertension Qualified Code(s): I10 - Essential (primary) hypertension Is this a current diagnosis for this admission?: Yes Plan: PMH HTN Continue a home dose amlodipine and Clonidine (3) Pneumonia Qualifiers: Pneumonia type: due to unspecified organism Laterality: left Lung location: unspecified part of lung Qualified Code(s): J18.9 - Pneumonia, unspecified organism Is this a current diagnosis for this admission?: Yes Plan: LLL PNA seen on CXR Community acquired PNA Lungs CTA Afebrile. No leukocytosis. Treat with azithromycin and rocephin IV Sputum culture pending (4) DM w/o complication type II Is this a current diagnosis for this admission?: Yes Plan: PMH DM Check HgbA1c in AM Humalog ACHS Humalog sliding scale insulin Diabetic diet (5) ABY (acute kidney injury) Is this a current diagnosis for this admission?: Yes Plan: Secondary to dehydration and infection Baseline creatinine < 1.0, currently 1.5 IVF @ 75mL/hr Daily chemistries (6) Hypernatremia Is this a current diagnosis for this admission?: Yes Plan: Secondary to dehydration IVF @ 75mL/hr Daily chemistries - Time Time Spent with patient: 15-24 minutes Medications reviewed and adjusted accordingly: Yes Anticipated discharge: Home - Inpatient Certification Based on my medical assessment, after consideration of the patient's comorbidities, presenting symptoms, or acuity I expect that the services needed warrant INPATIENT care.: Yes I certify that my determination is in accordance with my understanding of Medicare's requirements for reasonable and necessary INPATIENT services [42 CFR 412.3e].: Yes Medical Necessity: Risk of Complication if Not Cared For in Hospital
[2018-12-01] MEDS: CLONIDINE HCL 0.2 MG TABLET PO SCH (21:11)
[2018-12-01] MEDS: INSULIN LISPRO 100 UNIT/ML 3 ML VIAL SUBCUT SCH (21:27)
[2018-12-01] MEDS ORDERED: FAMOTIDINE 20 MG TABLET PO SCH (22:00)
[2018-12-01] MEDS ORDERED: AMLODIPINE BESYLATE 10 MG TABLET PO SCH (22:00)
[2018-12-01] MEDS ORDERED: ATORVASTATIN CALCIUM 10 MG TABLET PO SCH (22:00)
--- NOTE | 2018-12-01 23:50 | EKG REPORT ---
SEVERITY:- BORDERLINE ECG - SINUS RHYTHM BORDERLINE R WAVE PROGRESSION, ANTERIOR LEADS BORDERLINE T ABNORMALITIES, ANT-LAT LEADS : Confirmed by: Chelita Salamanca MD 01-Dec-2018 23:50:10
[2018-12-02 06:49] LABS: HEMATOCRIT 33.7 % (36.0-47.0); HEMOGLOBIN 10.9 g/dL (12.0-15.5); MEAN CORPUSCULAR HEMOGLOBIN 29.2 pg (27.0-33.4); MEAN CORPUSCULAR HGB CONC 32.5 g/dL (32.0-36.0); MEAN CORPUSCULAR VOLUME 90 fl (80-97); PLATELET COUNT 188 10^3/uL (150-450); RED BLOOD COUNT 3.74 10^6/uL (3.72-5.28); RED CELL DISTRIBUTION WIDTH 14.5 % (11.5-14.0); WHITE BLOOD COUNT 4.9 10^3/uL (4.0-10.5)
[2018-12-02 07:14] LABS: ALANINE AMINOTRANSFERASE 14 U/L (9-52); ALBUMIN 3.6 g/dL (3.5-5.0); ALKALINE PHOSPHATASE 69 U/L (38-126); ANION GAP 11 (5-19); ASPARTATE AMINO TRANSFERASE 18 U/L (14-36); BILIRUBIN,DIRECT 0.2 mg/dL (0.0-0.4); BILIRUBIN,TOTAL 0.6 mg/dL (0.2-1.3); BLOOD UREA NITROGEN 16 mg/dL (7-20); CALCIUM 9.6 mg/dL (8.4-10.2); CARBON DIOXIDE 27 mmol/L (22-30); CHLORIDE 106 mmol/L (98-107); CHOLESTEROL 107.14 mg/dL (0-200); GLUCOSE 101 mg/dL (75-110); POTASSIUM 4.1 mmol/L (3.6-5.0); SODIUM 143.7 mmol/L (137-145); TOTAL PROTEIN 7.5 g/dL (6.3-8.2); TRIGLYCERIDES 82 mg/dL (<150)
[2018-12-02 07:24] LABS: DIRECT LDL 48 mg/dL (<100)
--- NOTE | 2018-12-02 07:59 | EKG REPORT ---
SEVERITY:- ABNORMAL ECG - SINUS RHYTHM CONSIDER ANTERIOR INFARCT NONSPECIFIC ST-T CHANGES LATERAL LEADS. : Confirmed by: Nic Cooley MD 02-Dec-2018 07:59:02
[2018-12-02] MEDS: INSULIN LISPRO 100 UNIT/ML 3 ML VIAL SUBCUT SCH ×3 (08:20→16:14)
[2018-12-02] MEDS: CLONIDINE HCL 0.2 MG TABLET PO SCH ×2 (09:10→17:39)
[2018-12-02] MEDS ORDERED: CEFTRIAXONE 1 GM/D5W RTU 1 GM/50 ML RTUPB IV SCH (10:00)
[2018-12-02] MEDS ORDERED: ASPIRIN 81 MG TABLET, ENT COATED PO SCH (10:00)
[2018-12-02] MEDS ORDERED: AZITHROMYCIN 500 MG in DEXTROSE 5%-WATER 250 ML IV SCH (10:00)
[2018-12-02] MEDS ORDERED: ENOXAPARIN SODIUM INJ 30 MG/0.3 ML DISP.SYRIN SUBCUT SCH (10:00)
[2018-12-02] MEDS ORDERED: CEFTRIAXONE SODIUM 1,000 MG in DEXTROSE 5%-WATER 50 ML IV SCH (10:00)
--- NOTE | 2018-12-02 14:10 | RADIOLOGY REPORT (SQ) ---
EXAM DESCRIPTION: CAROTID DOPPLER COMPLETED DATE/TIME: 12/02/2018 1:45 pm REASON FOR STUDY: syncope COMPARISON: 06/07/2011 TECHNIQUE: Grayscale ultrasound, Doppler velocity and spectra, and color Doppler images acquired of the extra-cranial carotid and vertebral arteries. Images stored on PACS. LIMITATIONS: None. FINDINGS: RIGHT CAROTID CCA Velocities: Within normal limits. ICA Velocities Peak systolic 68 cm/s. End diastolic 17 cm/s. Proximal ICA/CCA peak systolic ratio 1. Spectra normal. No significant plaque. LEFT CAROTID CCA Velocities: Within normal limits. ICA Velocities Peak systolic 66 cm/s. End diastolic 21 cm/s. Proximal ICA/CCA peak systolic ratio 0.87. Spectra normal. No significant plaque. VERTEBRAL ARTERIES: Antegrade flow. Normal waveforms. SUBCLAVIAN ARTERIES: No finding. OTHER: No other significant finding. IMPRESSION: NO HEMODYNAMICALLY SIGNIFICANT STENOSIS. COMMENT: Quality ID #195: Velocity criteria are extrapolated from the diameter data as defined by t he Society of Radiologists in Ultrasound Consensus Conference. Radiology 2003: 229; 340-346. TECHNICAL DOCUMENTATION: JOB ID: [id number] [employer]- All Rights Reserved Reading location - IP/workstation name: [email or web address]
[2018-12-02 16:43] VITALS: BP 135/57
[2018-12-02] MEDS ORDERED: FAMOTIDINE 20 MG TABLET PO SCH (22:00)
--- NOTE | 2018-12-11 21:33 | PDOC DISCHARGE SUMMARY ---
General - Admit/Disc Date/PCP Admission Date/Primary Care Provider: 12/01/18 16:16 JAY COBB MD Discharge Date: 12/02/18 - Discharge Diagnosis (1) Syncope Is this a current diagnosis for this admission?: Yes (2) HTN (hypertension) Is this a current diagnosis for this admission?: Yes (3) Pneumonia Is this a current diagnosis for this admission?: Yes (4) DM w/o complication type II Is this a current diagnosis for this admission?: Yes (5) ABY (acute kidney injury) Is this a current diagnosis for this admission?: Yes (6) Hypernatremia Is this a current diagnosis for this admission?: Yes - Additional Information Resuscitation Status: Full Code Discharge Diet: As Tolerated Discharge Activity: Activity As Tolerated Home Medications: Metformin HCl [Glucophage] 1,000 mg PO BID 05/31/14 Amlodipine Besylate [Norvasc 10 mg Tablet] 10 mg PO QHS #30 tablet 12/25/14 Atorvastatin Calcium [Lipitor 10 mg Tablet] 10 mg PO QHS 12/01/18 Clonidine HCl [Catapres 0.2 mg Tablet] 0.2 mg PO BID 12/01/18 Ubidecarenone/Vit E Acet [Co Q-10 100 mg Softgel] 1 each PO DAILY 12/01/18 Famotidine [Pepcid 20 mg Tablet] 20 mg PO QHS tablet 12/02/18 Insulin Lispro [Humalog Insulin (Lispro) 100 unit/mL] 0 - 12 unit SUBCUT ACHS unit 12/02/18 History of Present Illness History of Present Illness: KEELEY COREA is a 83 year old female with a PMH of HTN, HLD, DM, R carotid endarterectomy. She presented to the ED following a syncopal episode while at [facility] today. The patient reports weakness and fatigue for the last 48 hours. She went to [facility]dhism but quickly began to feel ill, she asked family to take her home. While exiting the buddhism the patient became unconscious, her family was able to catch her and gently put her on the ground. No head trauma or seizure- like activity. Upon arrival to the ED, the patient's laboratory studies reveal HYPERnatremia (Na 145) and ABY (Creatinine 1.5). Cardiac enzymes and all other labs were relatively benign. Head CT normal. EKG shows NSR. CXR shows possible LLL PNA. The patient was started on Azithromycin and Rocephin for community Acquired PNA. She was admitted to the hospitalist service for PNA and syncope workup. On exam, the patient is awake an oriented. 5/5 strength in all extremities. No facial droop, no pronator drift, no hand/eye coordination deficits. Lungs are CTA. S1S2. No peripheral edema noted. Hospital Course Hospital Course: KEELEY COREA is a 83 year old female with a PMH of HTN, HLD, DM, R carotid endarterectomy. [facility] a syncopal episode. +LOC, no head trauma. It was discovered on CXR that the patient had PNA, she was started on Azithromycin and Rocephin for community acquired PNA. Head CT, MRI, and carotid doppler studies were all WNL. Laboratory studies were benign. Her physical exam was completely normal with the exception of mild rhonci heard over the LLL and trace pedal edema. Within 36 hours of admission, the patient was sent home with a prescription for levaquin to complete her treatment regimen for CAP. The patient was advised to follow up with her PCP within 1-2 weeks. Physical Exam Vital Signs: Temp Pulse Resp BP Pulse Ox 98.4 F 59 L 18 135/57 H 99 12/02/18 16:40 12/02/18 16:40 12/02/18 16:40 12/02/18 16:40 12/02/18 16:40 General appearance: PRESENT: no acute distress, well-developed, well-nourished Head exam: PRESENT: atraumatic, normocephalic Eye exam: PRESENT: conjunctiva pink, EOMI, PERRLA. ABSENT: scleral icterus Ear exam: PRESENT: normal external ear exam Mouth exam: PRESENT: moist, tongue midline Neck exam: ABSENT: carotid bruit, JVD, lymphadenopathy, thyromegaly Respiratory exam: PRESENT: clear to auscultation christina. ABSENT: rales, rhonchi, wheezes Cardiovascular exam: PRESENT: RRR. ABSENT: diastolic murmur, rubs, systolic murmur Pulses: PRESENT: normal dorsalis pedis pul Vascular exam: PRESENT: normal capillary refill GI/Abdominal exam: PRESENT: normal bowel sounds, soft. ABSENT: distended, guarding, mass, organolmegaly, rebound, tenderness Rectal exam: PRESENT: deferred Extremities exam: PRESENT: full ROM, pedal edema - trace. ABSENT: calf tenderness, clubbing Musculoskeletal exam: PRESENT: ambulatory, full ROM Neurological exam: PRESENT: alert, awake, oriented to person, oriented to place, oriented to time, oriented to situation Psychiatric exam: PRESENT: appropriate affect, normal mood Skin exam: PRESENT: dry, intact, warm. ABSENT: cyanosis, rash Results Laboratory Results: 12/02/18 06:15 12/02/18 06:15 12/01/18 12/01/18 12/01/18 13:06 13:06 18:00 Creatine Kinase 41 CK-MB (CK-2) 0.42 Troponin I < 0.012 < 0.012 12/02/18 12/02/18 00:01 06:15 Creatine Kinase CK-MB (CK-2) Troponin I 0.015 < 0.012 Impressions: Head MRI 12/01/18 00:00 IMPRESSION: No acute intracranial abnormality. Chronic changes. No recent CVA. EVIDENCE OF ACUTE STROKE: NO. Chest X-Ray 12/01/18 13:08 IMPRESSION: Left basilar subsegmental atelectasis/ infiltrate Head CT 12/01/18 15:01 IMPRESSION: Chronic changes. No acute intracranial abnormality. Carotid Doppler Study 12/02/18 00:00 IMPRESSION: NO HEMODYNAMICALLY SIGNIFICANT STENOSIS. Status: Imported from PACS Qualifiers - * PATIENT BEING DISCHARGED WITH ANY OF THE FOLLOWING DIAGNOSIS: No Acute Heart Failure Is this a Heart Failure Patient?: No Plan Time Spent: Less than 30 Minutes
== END 2018-12-02 17:45 | disposition home or self-care (01) | DRG 194 ==
LOC: ER 12:46 → EH 16:16 → 3N 18:43
PROVIDERS: ADMIT Internal Medicine; ATTEND Internal Medicine
DX: J18.9 Pneumonia, unspecified organism (principal); E87.0 Hyperosmolality and hypernatremia; N17.9 Acute kidney failure, unspecified; R55 Syncope and collapse; I10 Essential (primary) hypertension; E11.9 Type 2 diabetes mellitus without complications; E78.5 Hyperlipidemia, unspecified; Z79.84 Long term (current) use of oral hypoglycemic drugs; Z88.8 Allergy status to other drugs, medicaments and biological substances; Z82.49 Family history of ischemic heart disease and other diseases of the circulatory system; Z83.3 Family history of diabetes mellitus
CPT/HCPCS: 36415; 70450; 70551; 71045; 80053; 80061; 81001; 82550; 82553; 82962; 83036; 84484; 85025; 85027; 87040; 87086; 93005; 93010; 93880; 96365; 96367; 99285; J0456; J0696; J1650; J1815; J3490; J7030; J7060

== ENCOUNTER → 2019-01-28 | Outpatient (CLI) | payer MEDICARE, MEDICAID ==
[2019-01-28 09:02] LABS: HEMOGLOBIN 11.9 g/dL (12.0-15.5); MEAN CORPUSCULAR HEMOGLOBIN 29.8 pg (27.0-33.4); MEAN CORPUSCULAR HGB CONC 32.9 g/dL (32.0-36.0); MEAN CORPUSCULAR VOLUME 90 fl (80-97); PLATELET COUNT 268 10^3/uL (150-450); RED BLOOD COUNT 3.99 10^6/uL (3.72-5.28); RED CELL DISTRIBUTION WIDTH 14.2 % (11.5-14.0); WHITE BLOOD COUNT 6.3 10^3/uL (4.0-10.5)
[2019-01-28 09:40] LABS: ANION GAP 10 (5-19); BLOOD UREA NITROGEN 14 mg/dL (7-20); CARBON DIOXIDE 29 mmol/L (22-30); CHLORIDE 105 mmol/L (98-107); GLUCOSE 118 mg/dL (75-110); SODIUM 143.7 mmol/L (137-145)
[2019-01-28 09:41] LABS: POTASSIUM 4.3 mmol/L (3.6-5.0)
[2019-01-28 10:02] LABS: APPEARANCE,URINE CLEAR; BILIRUBIN,URINE NEGATIVE (NEGATIVE); COLOR,URINE STRAW; GLUCOSE, URINE NEGATIVE (NEGATIVE)
[2019-01-28 10:03] LABS: KETONES,URINE NEGATIVE (NEGATIVE); LEUKOCYTE ESTERASE,URINE TRACE (NEGATIVE); NITRITE,URINE NEGATIVE (NEGATIVE); PROTEIN,URINE 30 mg/dL (NEGATIVE); URINE SPECIFIC GRAVITY 1.011; UROBILINOGEN,URINE NEGATIVE mg/dL (<2.0)
== END ==
LOC: OD 07:57
PROVIDERS: ATTEND Internal Medicine Nephrology
DX: N18.2 Chronic kidney disease, stage 2 (mild) (principal); E11.9 Type 2 diabetes mellitus without complications; I10 Essential (primary) hypertension; D64.9 Anemia, unspecified
CPT/HCPCS: 36415; 80048; 81001; 85027

== ENCOUNTER → 2019-05-16 | Outpatient (CLI) | payer MEDICARE, MEDICAID ==
--- NOTE | 2019-05-16 13:09 | WOMENS IMAGING REPORT ---
EXAM DESCRIPTION: BILAT SCREENING MAMMO W/CAD COMPLETED DATE/TIME: 05/16/2019 10:59 am REASON FOR STUDY: ROUTINE BILATERAL SCREENING;Z12.31 Z12.31 ENCNTR SCREEN MAMMOGRAM FOR MALIGNANT N EOPLASM OF LUIS COMPARISON: Multiple since 2008 EXAM PARAMETERS: Standard craniocaudal and mediolateral oblique views of each breast recorded using digital acquisition. Read with the assistance of CAD. .[employer] Senior [employer]r Manager Version 9.2 LIMITATIONS: None. FINDINGS: Findings present which are benign by mammographic criteria. No suspicious masses, calcifi cations or architectural distortion. Pertinent benign findings: Benign bilateral breast parenchymal and vascular calcifications Benign mammographic findings may include one or more of the following: Smooth masses, popcorn/rim/co arse calcifications, asymmetries, post-procedure changes, and lesions with long-standing stability. IMPRESSION: BENIGN MAMMOGRAPHIC FINDINGS. BIRADS 2 BREAST DENSITY: c. The breasts are heterogeneously dense, which may obscure small masses. BIRAD: ASSESSMENT: 2 BENIGN FINDING(S) RECOMMENDATION: ROUTINE SCREENING Please continue yearly bilateral screening mammography/tomosynthesis in April 2020 COMMENT: The patient has been notified of the results by letter per MQSA requirements. Additional no tification policies are in place for contacting patient with suspicious or incomplete findings. Quality ID #225: The [employer] recommends an annual screening mammogram for women aged 40 years or over. This facility utilizes a reminder system to ensure that all patients receive reminder letters, and/or direct phone calls for appointments. This includes reminders for routine scr eening mammograms, diagnostic mammograms, or other Breast Imaging Interventions when appropriate. Th is patient will be placed in the appropriate reminder system. TECHNICAL DOCUMENTATION: FINDING NUMBER: (1) ASSESSMENT: (1) JOB ID: [id number] [employer]- All Rights Reserved Reading location - IP/workstation name: [email or web address]
== END ==
LOC: WI 10:45
PROVIDERS: ATTEND Family Medicine
DX: Z12.31 Encounter for screening mammogram for malignant neoplasm of breast (principal)
CPT/HCPCS: 77067

== ENCOUNTER → 2020-05-17 | Outpatient (CLI) | payer MEDICARE, MEDICAID ==
--- NOTE | 2020-05-17 13:41 | WOMENS IMAGING REPORT ---
EXAM DESCRIPTION: BILAT SCREENING MAMMO W/CAD IMAGES COMPLETED DATE/TIME: 05/17/2020 10:26 am REASON FOR STUDY: Z12.31 ENCOUNTER FOR SCREENING MAMMOGRAM FOR MALIGNANT NEOPLASM OF BREAST Z12.31 ENCNTR SCREEN MAMMOGRAM FOR MALIGNANT NEOPLASM OF LUIS COMPARISON: Multiple since 2011 EXAM PARAMETERS: Standard craniocaudal and mediolateral oblique views of each breast recorded using digital acquisition. Read with the assistance of CAD. .[facility] - [employer] Asst Version 9.2 LIMITATIONS: None. FINDINGS: No suspicious masses, suspicious calcifications or architectural distortion. No areas of c oncern. IMPRESSION: NEGATIVE MAMMOGRAM. BIRADS 1 BREAST DENSITY: c. The breasts are heterogeneously dense, which may obscure small masses. BIRAD: ASSESSMENT: 1 NEGATIVE RECOMMENDATION: ROUTINE SCREENING Please continue yearly bilateral screening mammography/tomosynthesis in April 2021 COMMENT: The patient has been notified of the results by letter per [place] requirements. Additional no tification policies are in place for contacting patient with suspicious or incomplete findings. Quality ID #225: The [place] [employer] recommends an annual screening mammogram for women aged 40 years or over. This facility utilizes a reminder system to ensure that all patients receive reminder letters, and/or direct phone calls for appointments. This includes reminders for routine scr eening mammograms, diagnostic mammograms, or other Breast Imaging Interventions when appropriate. Th is patient will be placed in the appropriate reminder system. TECHNICAL DOCUMENTATION: FINDING NUMBER: (1) ASSESSMENT: (1) JOB ID: [id number] 2010 [employer]- All Rights Reserved Reading location - IP/workstation name: [email or web address]
== END ==
LOC: WI 10:02
PROVIDERS: ATTEND Family Medicine
DX: Z12.31 Encounter for screening mammogram for malignant neoplasm of breast (principal)
CPT/HCPCS: 77067

== ENCOUNTER 2020-07-22 15:56 | Emergency (ER) | payer MEDICARE, MEDICAID ==
--- NOTE | 2020-07-22 16:45 | ER Document Report ---
ED Medical Screen (RME) - General Chief Complaint: Headache Stated Complaint: HEADACHE,WEAKNESS Time Seen by Provider: 07/22/20 16:39 Primary Care Provider: JAY COBB MD [Primary Care Provider] - Follow up as needed Mode of Arrival: Wheelchair Information source: Patient, Relative Notes: Patient is a 84-year-old female brought in emergency room by her daughter with complaint of altered mental status. Daughter states that she was normal and sometimes up around 11 AM this morning when she got home she found her confused. She states this is unusual for the patient and is not fully resolved she is normally awake alert and oriented x4. She is very confused as to time place and location. Patient has history of A. fib with Eliquis for anticoagulation. She has history of tnd-[id number] diabetes denies any history of cardiac problems no history of strokes in the past no history of bleeds in the past denies any dysuria nausea vomiting or diarrhea constipation Physical examination shows her to be a very frail appearing 84-year-old female no apparent distress at this time. Cardiac: Patient was bradycardic on monitor at 48 bpm there was no regular and there was a 4 out of 6 diastolic murmur. Lungs: Bilateral breath sounds breath sounds decreased throughout no rhonchi rales or wheeze auscultated. Abdomen: Bowel sounds present 4 quads nontender to palpate. Neuro: Patient is neurologic exam at this time appears baseline normal he is answering questions appropriately she has no drift in the upper or lower extremities no abnormalities found at this time. INH of 0 currently. I have greeted and performed a rapid initial assessment of this patient. A comprehensive ED assessment and evaluation of the patient, analysis of test results and completion of the medical decision making process will be conducted by additional ED providers. Dictation of this chart was performed using voice recognition software; therefore, there may be some unintended grammatical errors. TRAVEL OUTSIDE OF THE [place] IN LAST 30 DAYS: No - Related Data Allergies/Adverse Reactions: labetalol [Labetalol] Adverse Reaction (Verified 05/18/19 14:03) pronounced bradycardia--30's Past Medical History - Past Medical History Cardiac Medical History: Reports: Hx Hypercholesterolemia, Hx Hypertension Denies: Hx Atrial Fibrillation, Hx Congestive Heart Failure, Hx Heart Attack Endocrine Medical History: Reports: Hx Diabetes Mellitus Type 2 Renal/ Medical History: Denies: Hx Peritoneal Dialysis GI Medical History: Reports: Hx Gastroesophageal Reflux Disease Psychiatric Medical History: Denies: Hx Depression Past Surgical History: Reports: Hx Carotid Endarterectomy - Rt - Immunizations Hx Diphtheria, Pertussis, Tetanus Vaccination: Yes Doctor's Discharge - Discharge Referrals: JAY COBB MD [Primary Care Provider] - Follow up as needed
[2020-07-22 17:23] LABS: ABSOLUTE LYMPHOCYTES (AUTO) 1.6 10^3/uL (0.5-4.7); ABSOLUTE MONOCYTES (AUTO) 1.3 10^3/uL (0.1-1.4); ABSOLUTE NEUT (AUTO) 6.2 10^3/uL (1.7-8.2); BASOPHILS % (AUTO) 0.3 % (0-2); EOSINOPHILS % (AUTO) 0.2 % (0-6); HEMATOCRIT 30.8 % (36.0-47.0); HEMOGLOBIN 10.3 g/dL (12.0-15.5); LYMPHOCYTES % (AUTO) 17.6 % (13-45); MEAN CORPUSCULAR HGB CONC 33.3 g/dL (32.0-36.0); MEAN CORPUSCULAR VOLUME 87 fl (80-97); MONOCYTES % (AUTO) 13.9 % (3-13); PLATELET COUNT 230 10^3/uL (150-450); RED BLOOD COUNT 3.54 10^6/uL (3.72-5.28); RED CELL DISTRIBUTION WIDTH 15.3 % (11.5-14.0); TOTAL CELLS COUNTED % (AUTO) 100 %; WHITE BLOOD COUNT 9.1 10^3/uL (4.0-10.5)
--- NOTE | 2020-07-22 17:24 | RADIOLOGY REPORT (SQ) ---
EXAM DESCRIPTION: CT HEAD WITHOUT IMAGES COMPLETED DATE/TIME: 07/22/2020 1:58 pm REASON FOR STUDY: Altered mental COMPARISON: CT head and MRI brain 12/01/2018. TECHNIQUE: Axial images acquired through the brain without intravenous contrast. Images reviewed wi th bone, brain and subdural windows. Additional sagittal and coronal reconstructions were generated. Images stored on PACS. All CT scanners at this facility use dose modulation, iterative reconstruction, and/or weight based d osing when appropriate to reduce radiation dose to as low as reasonably achievable (ALARA). [facility]: Dose Right [facility]: CareDose [facility]: Dose Right [facility]: Teradose 4D [facility]: Smart [employer] RADIATION DOSE: CT Rad equipment meets quality standard of care and radiation dose reduction techniq ues were employed. CTDIvol: 53.2 mGy. DLP: 911 mGy-cm. mGy. LIMITATIONS: None. FINDINGS: VENTRICLES: Stable size and morphology. CEREBRUM: No masses. No hemorrhage. No midline shift. No evidence for acute infarction. Normal gra y/white matter differentiation. No areas of low density in the white matter. CEREBELLUM: No masses. No hemorrhage. No alteration of density. No evidence for acute infarction. EXTRAAXIAL SPACES: Small fluid collection in the left frontal region may be slightly increased in den sity since prior examination, but appears similar in size, measuring up to 0.7 cm in thickness. This has density greater than added background CSF, though no hyperdense acute hemorrhage is identified. ORBITS AND GLOBE: No intra- or extraconal masses. Normal contour of globe without masses. CALVARIUM: No fracture. PARANASAL SINUSES: No fluid or mucosal thickening. SOFT TISSUES: No mass or hematoma. OTHER: No other significant finding. IMPRESSION: 1. Small left frontal extra-axial fluid collection is similar in size, though slightly increased in density from prior examinations, possibly due to interval hemorrhage within the collecti on. This is not as hyperdense as would be expected in the setting of acute hemorrhage. No other acu te intracranial hemorrhage identified. No new herniation or progressive midline shift. 2. No other acute intracranial abnormality identified on noncontrast CT. EVIDENCE OF ACUTE STROKE: NO. COMMENT: The findings were sent to the Radiology Results Communication [facility] at 14:17 on 0 to be communicated to a licensed caregiver. Quality ID # [id number]: Final reports with documentation of one or more dose reduction techniques (e.g., Au tomated exposure control, adjustment of the mA and/or kV according to patient size, use of iterative reconstruction technique) TECHNICAL DOCUMENTATION: JOB ID: [id number] 2010 [employer]- All Rights Reserved Reading location - IP/workstation name: [email or web address]
--- NOTE | 2020-07-22 17:29 | RADIOLOGY REPORT (SQ) ---
EXAM DESCRIPTION: CHEST SINGLE VIEW IMAGES COMPLETED DATE/TIME: 07/22/2020 2:09 pm REASON FOR STUDY: Altered mental COMPARISON: 05/18/2019 EXAM PARAMETERS: NUMBER OF VIEWS: One view. TECHNIQUE: Single frontal radiographic view of the chest acquired. RADIATION DOSE: NA LIMITATIONS: Lungs are mildly hypoinflated. FINDINGS: LUNGS AND PLEURA: Lungs are mildly hypoinflated. Persistent bibasilar opacities with poss ible slight increased obscure a sarmiento of the left hemidiaphragm. There may be trace bilateral pleural fluid or thickening. No visualized pneumothorax. MEDIASTINUM AND HILAR STRUCTURES: No masses. Contour normal. HEART AND VASCULAR STRUCTURES: Stable enlargement of the cardiac silhouette, likely exacerbated due t o AP technique and hypoinflation. BONES: No acute findings. HARDWARE: None in the chest. OTHER: No other significant finding. IMPRESSION: Mild bibasilar opacities which could be in part due to chronic scarring, though there ma y be slight increase left basilar opacities could be due to increasing atelectasis or infection. TECHNICAL DOCUMENTATION: JOB ID: [id number] [employer]- All Rights Reserved Reading location - IP/workstation name: [email or web address]
[2020-07-22 17:37] LABS: ALBUMIN 4.2 g/dL (3.5-5.0); ALKALINE PHOSPHATASE 110 U/L (38-126); ANION GAP 12 (5-19); ASPARTATE AMINO TRANSFERASE 29 U/L (14-36); BILIRUBIN,TOTAL 1.1 mg/dL (0.2-1.3); BLOOD UREA NITROGEN 22 mg/dL (7-20); CALCIUM 9.5 mg/dL (8.4-10.2); CARBON DIOXIDE 26 mmol/L (22-30); CHLORIDE 101 mmol/L (98-107); GLUCOSE 164 mg/dL (75-110); POTASSIUM 3.3 mmol/L (3.6-5.0); TOTAL PROTEIN 8.8 g/dL (6.3-8.2)
--- NOTE | 2020-07-22 17:45 | EKG REPORT ---
SEVERITY:- ABNORMAL ECG - ATRIAL FIBRILLATION BORDERLINE R WAVE PROGRESSION, ANTERIOR LEADS NONSPECIFIC T ABNORMALITIES, DIFFUSE LEADS : Confirmed by: Chris Harrison MD 22-Jul-2020 17:44:37
--- NOTE | 2020-07-22 19:15 | ER Document Report ---
ED General - General Chief Complaint: Weakness Stated Complaint: HEADACHE,WEAKNESS Time Seen by Provider: 07/22/20 16:39 Primary Care Provider: JAY COBB MD [Primary Care Provider] - Follow up as needed Mode of Arrival: Wheelchair TRAVEL OUTSIDE OF THE [place] IN LAST 30 DAYS: No - HPI Notes: 84-year-old female presents with a headache. Patient states that this morning around 11 AM she developed a frontal headache, radiated to the back of her head, it has been constant since its onset, she describes it as it feels like something is sitting on top of her head. She has no visual changes. She denies nausea or vomiting. She did take some Tylenol prior to arrival which did help with the pain. Patient's daughter at bedside notes that she seemed to be confused today was not acting her normal self. She is now back to her baseline. Patient denies any falls. She reports compliance with her medications. - Related Data Allergies/Adverse Reactions: labetalol [Labetalol] Adverse Reaction (Verified 05/18/19 14:03) pronounced bradycardia--30's Home Medications: Clonidine, Metformin, Atorvastatin, Eqliquis, Amlodipine, HCTZ, Iron, Cardizem Past Medical History - General Information source: Patient, Relative - Social History Smoking Status: Never Smoker Family History: Reviewed & Not Pertinent, CAD, DM, Hyperlipidemia, Hypertension - Past Medical History Cardiac Medical History: Reports: Hx Hypercholesterolemia, Hx Hypertension Denies: Hx Atrial Fibrillation, Hx Congestive Heart Failure, Hx Heart Attack Endocrine Medical History: Reports: Hx Diabetes Mellitus Type 2 Renal/ Medical History: Denies: Hx Peritoneal Dialysis GI Medical History: Reports: Hx Gastroesophageal Reflux Disease Psychiatric Medical History: Denies: Hx Depression Past Surgical History: Reports: Hx Carotid Endarterectomy - Rt - Immunizations Hx Diphtheria, Pertussis, Tetanus Vaccination: Yes Review of Systems - Review of Systems Constitutional: denies: Fever EENT: denies: Blurred vision Cardiovascular: denies: Chest pain, Palpitations Respiratory: denies: Short of breath Gastrointestinal: denies: Abdominal pain, Diarrhea, Nausea, Vomiting Genitourinary: denies: Dysuria Female Genitourinary: No symptoms reported Musculoskeletal: No symptoms reported Skin: No symptoms reported Hematologic/Lymphatic: No symptoms reported Neurological/Psychological: Weakness - Generalized, Headaches. denies: Numbness Physical Exam - Vital signs Vitals: Temp Pulse Resp BP Pulse Ox 99.4 F 48 L 16 108/69 98 07/22/20 16:44 07/22/20 16:44 07/22/20 16:44 07/22/20 16:44 07/22/20 16:44 - General General appearance: Appears well, Alert In distress: None - HEENT Head: Normocephalic, Atraumatic Extraocular movements intact: Yes Pupils: PERRL - Respiratory Breath sounds: Normal - Cardiovascular Rhythm: Irregularly irregular, Other - Heart rate is extremely variable, ranging from normal to briefly tachycardic then returning to a normal rate Murmur: Yes Normal capillary refill: Yes - Abdominal Distension: No distension Tenderness: Nontender - Extremities General upper extremity: Normal ROM General lower extremity: Normal ROM. No: Edema - Neurological Neuro grossly intact: Yes Cognition: Normal Orientation: AAOx4 Notes: Face is symmetric, speech is clear, tongue protrudes midline. Strength is symmetric between the upper extremities. Strength is symmetric between the lower extremities. Sensation is grossly intact. Coordination is grossly intact. - Psychological Associated symptoms: Normal affect - Skin Skin Temperature: Warm Course - Re-evaluation Re-evalutation: 84-year-old female presents with a frontal headache, atraumatic. On exam she is alert and well-appearing, she is ANO x4, she has no gross focal neuro deficits. She is known to have chronic A. fib, she is chronically on did tell exam and also Eliquis. Her heart rate is variable on exam, she will have brief episodes of tachycardia, given that she is asymptomatic as well elected to watch at this time. If she were to become symptomatic or had sustained tachycardia, would then intervene with medications. Through the triage process she had a head CT performed which showed a questionable abnormality in the left frontal region, has had a chronic abnormality here before however concern potentially recent bleed. Patient is adamant that there have been no recent falls, daughter is also adamant there have not been any falls. 07/22/20 22:35 MRI report has resulted. 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 Also mentions that there is nonspecific left frontal bone inner table thickening correlating it to the CT is likely chronic. I then rereviewed the CT report. The CT report says no hemorrhage. No midline shift. In detail to the extra-axial space, there is a small fluid collection in the left frontal region slightly increased in density since prior exam, but appears similar in size. This has density greater than added back on CSF, though no hyperdense acute hemorrhage is identified. Overall impression states that this is not as hyperdense as would be expected in the setting of acute hemorrhage. I went in to update patient and her daughter on the findings. Daughter is adamant that patient has never been diagnosed with SDH. I reference that clearly the head CT is comparing to another image, the daughter states that the patient has never been seen at another hospital. Patient agrees with this. 07/22/20 22:43 I reviewed patient's most recent CT which is in November 2018. It does comment that there is a "chronic asymmetric prominence of CSF density fluid along the left cerebrum. This is unchanged. Probable mild chronic hygroma or asymmetric atrophy." I then reviewed all of the CT had that patient has in our system. On 12/22/2014 there was no acute intracranial hemorrhage seen. Notes asymmetric atrophy of the left cerebral hemisphere. On 07/04/2015 again noted "asymmetric atrophy of the left cerebral hemisphere, frontal and parietal. This looks chronic. No hemorrhage or mass. No shift." Through reviewing all of these CTs, I do not find any that indicate an acute SDH 07/22/20 23:21 [facility] transfer center paged for neurosurgery consult 07/23/20 00:07 I discussed with neurosurgery at [facility], Dr Alexandra and Gael LEDEZMA. There is no acute neurosurgical intervention. They have requested her to follow-up in clinic in 2 weeks. Would recommend to discontinue Eliquis, though she needs to clear this with her content architect. Has also requested a special all of patient's head CTs so they may have these available in clinic. Patient also received a new head CT when she follows up in clinic. 07/23/20 00:26 Patient reports that she is feeling much better and she feels comfortable going home. I updated patient and patient's daughter on my discussion with [facility] and the plan for follow-up. I also discussed the need to have cardiology involved to discuss continuing versus continuing Eliquis. Verbalized understanding. Return precautions given, stable at time of discharge. - Vital Signs Vital signs: Temp Pulse Resp BP Pulse Ox 98.4 F 109 H 18 122/76 99 07/23/20 01:00 07/23/20 01:00 07/23/20 01:00 07/23/20 01:00 07/23/20 01:00 - Laboratory Results Result Diagrams: 07/22/20 17:10 07/22/20 17:10 Laboratory Results Interpreted: 07/22/20 07/22/20 07/22/20 17:10 17:10 18:41 RBC 3.54 L Hgb 10.3 L Hct 30.8 L RDW 15.3 H Kenton % (Auto) 13.9 H Potassium 3.3 L BUN 22 H Est GFR ( Amer) 52 L Est GFR (MDRD) Non-Af 43 L Glucose 164 H Total Protein 8.8 H Urine Protein 100 H Urine Blood MODERATE H Critical Laboratory Results Reviewed: No Critical Results - Radiology Results Critical Radiology Results Reviewed: Yes Attending or Supervising Physician who Reviewed Radiology: JULI GRIMM - EKG Interpretation by Me Additional EKG results interpreted by me: EKG is interpreted by me. Atrial fibrillation, rate in the 100. Narrow QRS, QTC within normal limits. Nonspecific ST changes. No STEMI. Discharge - Discharge Clinical Impression: Frontal headache, Chronic atrial fibrillation Condition: Stable Disposition: HOME, SELF-CARE Additional Instructions: Please follow up with neurosurgery in 2 weeks, please call on Sunday to confirm appointment. As discussed. Please touch base with your content architect to discuss stopping versus continuing Eliquis. Return to the emergency department for any concerning worsening symptoms. Hunter Phoenix III, MD [facility] [address] [place] [id number] Referrals: JAY COBB MD [Primary Care Provider] - Follow up as needed
[2020-07-22] MEDS ORDERED: ACETAMINOPHEN 325 MG TABLET PO ONE (19:30)
[2020-07-22] MEDS ORDERED: POTASSIUM CHLORIDE 20 MEQ PACKET PO ONE (19:30)
[2020-07-22 19:33] LABS: APPEARANCE,URINE SLIGHTLY-CLOUDY; BILIRUBIN,URINE NEGATIVE (NEGATIVE); COLOR,URINE YELLOW; GLUCOSE, URINE NEGATIVE (NEGATIVE); KETONES,URINE NEGATIVE (NEGATIVE); LEUKOCYTE ESTERASE,URINE NEGATIVE (NEGATIVE); NITRITE,URINE NEGATIVE (NEGATIVE); PROTEIN,URINE 100 mg/dL (NEGATIVE); URINE SPECIFIC GRAVITY 1.016; UROBILINOGEN,URINE NEGATIVE mg/dL (<2.0)
--- NOTE | 2020-07-22 21:58 | RADIOLOGY REPORT (SQ) ---
EXAM DESCRIPTION: MRI HEAD WITHOUT RadLex: MR BRAIN WITHOUT IV CONTRAST CLINICAL HISTORY: 84 years Female; eval extra axial fluid collection on CT; confusion, headache, weakness TECHNIQUE: Routine noncontrast MRI brain protocol COMPARISON: CT 07/22/2020 FINDINGS: DWI: No diffusion restriction. Brain: Subdural collection over the left frontal and parietal lobes is again noted, as seen on CT. Posteriorly, the fluid collection is isointense with CSF on T1. Anteriorly, it is slightly hyperintense relative to CSF. The fluid is T2 hyperintense throughout. Maximum thickness, over the posterior left frontal lobe, is 8 mm. There is diffuse cerebral atrophy. Mass effect from the left subdural collection results in 5 mm rightward midline shift. No significant subfalcine herniation, however. No hemosiderin staining. Both globes are aphakic. Calvarium: There is nonspecific left frontal bone inner table thickening. Correlating with CT, this is likely chronic in stenosis (rather than calcified meningioma or calcified hematoma). No acute marrow edema. Sinuses: Paranasal sinuses and mastoid air cells are clear. Vascular: Normal flow-voids are seen in the major intracranial arteries. IMPRESSION: 1. 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 Mass effect causes 5 mm midline shift to the right. 2. Diffuse cerebral atrophy
[2020-07-23 01:07] VITALS: BP 122/76
== END 2020-07-23 01:08 | disposition home or self-care (01) ==
LOC: ER 15:56
DX: R51.9 Headache, unspecified (principal); R53.1 Weakness; I62.03 Nontraumatic chronic subdural hemorrhage; I10 Essential (primary) hypertension; E11.9 Type 2 diabetes mellitus without complications; I48.20 Chronic atrial fibrillation, unspecified; E78.00 Pure hypercholesterolemia, unspecified; Z79.899 Other long term (current) drug therapy; Z79.84 Long term (current) use of oral hypoglycemic drugs; Z79.01 Long term (current) use of anticoagulants
CPT/HCPCS: 93005; 99285; 36415; 87086; 85025; 80053; 81001; 84484; 70551; 71045; 70450; 93010; A9270; J3490

== ENCOUNTER 2020-08-06 14:13 | Emergency (ER) | payer MEDICARE, MEDICAID ==
--- NOTE | 2020-08-06 16:33 | ER Document Report ---
ED General - General Chief Complaint: Leg Pain Stated Complaint: LEG PAIN Primary Care Provider: JAY COBB MD [Primary Care Provider] - Follow up as needed TRAVEL OUTSIDE OF THE [place] IN LAST 30 DAYS: No - HPI Notes: Patient is an 84-year-old female presents emergency department for evaluation. She is actually being seen here in the ER for left leg pain. The patient was seen here in the emergency department on July 22, 2020. She was found to have a subdural. She was seen by Beau Middleton. She was taken off of her Eliquis, which she is on for her atrial fibrillation. She had a repeat CT scan done today. She developed left leg pain. She says it is behind her knee. She really cannot describe it for me. She states is a constant pain. Her family was concerned it could be a blood clot since she is off her thinners so they brought her here to the ED for further evaluation. She states is minimally worsened by walking. She states that the headache that she had with her subdura l has significantly improved, she really states she is not having any pain. She denies any difficulty seeing, speaking, swallowing. She is moving her arms and legs without difficulty. - Related Data Allergies/Adverse Reactions: labetalol [Labetalol] Adverse Reaction (Verified 05/18/19 14:03) pronounced bradycardia--30's Home Medications: Clonidine, Metformin, atorvastatin, amlodipine, HCTZ, iron, Cardizem Past Medical History - General Information source: Patient - Social History Smoking Status: Former Smoker Drug Abuse: None Family History: Reviewed & Not Pertinent, CAD, DM, Hyperlipidemia, Hypertension - Past Medical History Cardiac Medical History: Reports: Hx Atrial Fibrillation, Hx Hypercholesterolemia, Hx Hypertension Denies: Hx Congestive Heart Failure, Hx Heart Attack Neurological Medical History: Reports: Other - Subdural hematoma Endocrine Medical History: Reports: Hx Diabetes Mellitus Type 2 Renal/ Medical History: Denies: Hx Peritoneal Dialysis GI Medical History: Reports: Hx Gastroesophageal Reflux Disease Psychiatric Medical History: Denies: Hx Depression Past Surgical History: Reports: Hx Carotid Endarterectomy - Rt - Immunizations Hx Diphtheria, Pertussis, Tetanus Vaccination: Yes Review of Systems - Review of Systems Constitutional: No symptoms reported EENT: No symptoms reported Cardiovascular: No symptoms reported Respiratory: No symptoms reported Gastrointestinal: No symptoms reported Genitourinary: No symptoms reported Musculoskeletal: See HPI Skin: No symptoms reported Neurological/Psychological: See HPI Physical Exam - Vital signs Vitals: Temp Pulse Resp BP Pulse Ox 98.3 F 107 H 16 116/75 97 08/06/20 14:31 08/06/20 14:31 08/06/20 14:31 08/06/20 14:31 08/06/20 14:31 - Notes Notes: This is an 84-year-old female who appears her stated age, no acute distress. Vital signs reviewed, please refer to chart. Head is normocephalic, atraumatic. Pupils equal round, reactive to light. Neck is supple without meningismus. Heart is irregularly irregular, mildly tachycardic. Lungs are clear to auscultation bilaterally. Abdomen is soft, nontender, normoactive bowel sounds throughout. Extremities without cyanosis, clubbing. Posterior calves are nontender. There is a significant temperature difference in the right and left lower extremities, left exhibiting significantly cooler temperatures. I am unable to easily palpate dorsalis pedis over posterior tibial pulse on the left. +1 posterior tibial pulse on the right. Sensation is intact. Capillary refill is delayed. No posterior calf tenderness is noted. Patient is awake, alert, oriented x3. Cranial nerves II - XII are grossly intact without focal neurological deficits. Strength is plus 4 out of 5 bilateral upper and lower extremities. Sensation is intact. Reflexes symmetrical. Intact [id number], rapid alternating movements, [id number]. Course - Re-evaluation Re-evalutation: 08/06/20 16:32 Patient presents to the emergency department for evaluation. While she was in the waiting room waiting to be evaluated for leg pain, we received a critical result on her head CT. It seems that she does have a significant increase in size of subdural hemorrhage with midline shift. I do not see any acute neurological deficits. She is off thinners. Blood work has been ordered. I will consult with neurosurgery at [facility], images have been ordered to be placed and facesheet is sent. In regards to her diminished pulses in her left lower extremity, arterial Doppler has been ordered. Of course patient will not be a candidate for blood thinners at this time given her current SDH. We will first consult with neurosurgery. Patient is currently stable without complaints. We will continue to monitor. 08/06/20 22:08 At [address] Aparicio, on-call vascular surgeon at [facility]. I explained to him my findings on physical exam, the read on the radiology report of the arterial Doppler, as well as patient's other coexisting conditions. He states it sounds as if this is an acute vascular occlusion. He will not directly accept this patient, however, because of her other significant complicating medical issues. He recommends an ED transfer. I spoke with Dr. Ingram, ED physician. He states that it seems likely that this would be an internal medicine admit, recommends I contact internal medicine about possible transfer. He does agree, however, that this patient would be best served being seen at [facility], and transfer will be accepted. 08/06/20 22:[address] Zavala, internal medicine physician. She accepts the patient for transfer. I went and spoke to the patient as well as her family. I explained that I have delayed treatment of this likely a acute artery occlusion in her legs secondary to her subdural hematoma. I explained that this does increase the risk of complications, but I did not feel comfortable anticoagulating this patient with a likely spontaneous subdural that has been growing despite being off of blood thinners. I explained that if they decide to proceed forward with this treatment it should be done under the supervision of both vascular surgery as well as neurosurgery, and they are in agreement. They understand and are in agreement with the decision to delay acute treatment at this time. 08/07/20 00:34 I was notified that [facility] was on regional diversion, and despite being told that she would have a bed, she would this patient would not have a bed in the inpatient. I spoke with the nursing cold mill supervisor at [facility]. I explained to her that I was concerned that this was in fact a time sensitive emergency. She was able to have this discussed between Dr. Ingram, ED physician, and Dr. Aparicio. Patient will be accepted to the emergency department for transfer. 08/07/20 01:45 Patient has remained stable. She has no acute complaints or concerns. Transport is here to take her to [facility], she is in stable condition for tr ansfer. - Vital Signs Vital signs: Temp Pulse Resp BP Pulse Ox 98.3 F 107 H 15 127/76 H 96 08/06/20 14:31 08/06/20 14:31 08/07/20 00:01 08/07/20 00:01 08/07/20 00:01 - Laboratory Results Result Diagrams: 08/06/20 16:00 08/06/20 16:00 Laboratory Results Interpreted: 08/06/20 08/06/20 16:00 16:00 RBC 3.68 L Hgb 10.9 L Hct 32.1 L RDW 15.6 H Potassium 3.1 L Glucose 131 H Calcium 10.9 H Total Protein 9.1 H Critical Laboratory Results Reviewed: No Critical Results - Radiology Results Radiology Results Interpreted: 08/06/20 22:45 Chest X-Ray 08/06/20 16:25 IMPRESSION: Stable large cardiac silhouette and central vascular congestion. No overt edema. Chronic bibasilar opacities, likely scaring. Extremity Arterial Study 08/06/20 16:26 IMPRESSION: Overall, findings are compatible with significant left lower extremity outflow/runoff disease, with significantly diminished flow and/or occlusion of the femoral profunda, superficial femoral, and popliteal arteries, as above described. Likewise, there is no significant flow identified within the runoff vasculature. Suspected reconstitution at the level of the dorsalis pedis artery. Comment: These findings were reported to Dr. Krishna at the time of the examination by the performing registered cardiovascular specialist (NF). Critical Radiology Results Reviewed: Yes Attending or Supervising Physician who Reviewed Radiology: YARELI KRISHNA - EKG Interpretation by Me Additional EKG results interpreted by me: 08/06/20 22:46 Atrial fibrillation with rate of 112 bpm. PVCs noted. Normal axis and intervals. No acute ST elevation concerning for infarction. Nonspecific ST and T wave changes. No significant change compared to prior study. Critical Care Note - Critical Care Note Total time excluding time spent on procedures (mins): 40 Discharge - Discharge Clinical Impression: Arterial occlusion, lower extremity, Subdural hematoma Condition: Stable Disposition: [facility] Admitting Provider: Katiuska Referrals: JAY COBB MD [Primary Care Provider] - Follow up as needed
[2020-08-06 16:39] LABS: INTERNATIONAL RATION (INR) 1.05; PARTIAL THROMBOPLASTIN TIME 25.7 SEC (23.5-35.8)
--- NOTE | 2020-08-06 16:45 | RADIOLOGY REPORT (SQ) ---
EXAM DESCRIPTION: CHEST SINGLE VIEW IMAGES COMPLETED DATE/TIME: 08/06/2020 4:36 pm REASON FOR STUDY: large SDH COMPARISON: 07/22/2020 EXAM PARAMETERS: NUMBER OF VIEWS: One view. TECHNIQUE: Single frontal radiographic view of the chest acquired. RADIATION DOSE: NA LIMITATIONS: None. FINDINGS: LUNGS AND PLEURA: No opacities, masses or pneumothorax. No pleural effusion. MEDIASTINUM AND HILAR STRUCTURES: No masses. Contour normal. HEART AND VASCULAR STRUCTURES: Enlarged cardiac silhouette loss intra vascular congestion. No overt edema. BONES: No acute findings. HARDWARE: None in the chest. OTHER: No other significant finding. IMPRESSION: Stable large cardiac silhouette and central vascular congestion. No overt edema. Chronic bibasilar opacities, likely scaring. TECHNICAL DOCUMENTATION: JOB ID: [id number] 2010 [employer]- All Rights Reserved Reading location - IP/workstation name: [email or web address]
[2020-08-06 16:47] LABS: ABSOLUTE BASOPHILS # (AUTO) 0.1 10^3/uL (0.0-0.2); ABSOLUTE LYMPHOCYTES (AUTO) 1.7 10^3/uL (0.5-4.7); ABSOLUTE MONOCYTES (AUTO) 0.7 10^3/uL (0.1-1.4); ABSOLUTE NEUT (AUTO) 7.3 10^3/uL (1.7-8.2); EOSINOPHILS % (AUTO) 0.5 % (0-6); HEMATOCRIT 32.1 % (36.0-47.0); HEMOGLOBIN 10.9 g/dL (12.0-15.5); LYMPHOCYTES % (AUTO) 17.3 % (13-45); MEAN CORPUSCULAR HEMOGLOBIN 29.5 pg (27.0-33.4); MEAN CORPUSCULAR HGB CONC 33.8 g/dL (32.0-36.0); MEAN CORPUSCULAR VOLUME 87 fl (80-97); MONOCYTES % (AUTO) 7.4 % (3-13); PLATELET COUNT 315 10^3/uL (150-450); RED BLOOD COUNT 3.68 10^6/uL (3.72-5.28); RED CELL DISTRIBUTION WIDTH 15.6 % (11.5-14.0); SEGMENTED NEUTROPHILS % (AUTO) 73.8 % (42-78); TOTAL CELLS COUNTED % (AUTO) 100 %; WHITE BLOOD COUNT 9.9 10^3/uL (4.0-10.5)
[2020-08-06 16:54] LABS: ALBUMIN 4.5 g/dL (3.5-5.0); ALKALINE PHOSPHATASE 105 U/L (38-126); ANION GAP 16 (5-19); ASPARTATE AMINO TRANSFERASE 25 U/L (14-36); BILIRUBIN,DIRECT 0.3 mg/dL (0.0-0.4); BILIRUBIN,TOTAL 0.5 mg/dL (0.2-1.3); BLOOD UREA NITROGEN 17 mg/dL (7-20); CALCIUM 10.9 mg/dL (8.4-10.2); CARBON DIOXIDE 27 mmol/L (22-30); CHLORIDE 99 mmol/L (98-107); GLUCOSE 131 mg/dL (75-110); POTASSIUM 3.1 mmol/L (3.6-5.0); TOTAL PROTEIN 9.1 g/dL (6.3-8.2)
[2020-08-06] MEDS ORDERED: MORPHINE SULFATE 10 MG/ML INJ IV ONE ×2 (18:38→19:44)
[2020-08-06] MEDS ORDERED: ONDANSETRON HCL INJ/PF 4 MG/2 ML SDV IV ONE (18:39)
--- NOTE | 2020-08-06 19:37 | EKG REPORT ---
SEVERITY:- ABNORMAL ECG - ATRIAL FIBRILLATION MULTIFORM VENTRICULAR PREMATURE COMPLEXES NONSPECIFIC T ABNORMALITIES, LATERAL LEADS : Confirmed by: Chelita Salamanca MD 06-Aug-2020 19:36:20
--- NOTE | 2020-08-06 21:24 | RADIOLOGY REPORT (SQ) ---
EXAM DESCRIPTION: ARTERIAL LOWER EXTREM UNILAT 08/06/2020 4:26 PM COBBLER MCKAY CLINICAL HISTORY: 84 years Female, left leg cold; ; COMPARISON: None. FINDINGS: Left lower extremity arterial vasculature peak systolic velocities: BASS STRING WINDER: 30.4 cm/s; monophasic waveform. Suspect collateral arterial vessels emanating from the BASS STRING WINDER. Femoral profunda: 6 cm/s; monophasic waveform Proximal SFA: Minimal, if any flow at 5 cm/s with monophasic waveform. A collateral arterial vessel is noted adjacent to the proximal SFA. Mid SFA: No flow identified, suggestive of occlusion. Distal SFA: Minimal, if any flow at 5 cm/s. Spectral analysis is difficult given the absence of significant Doppler flow. Popliteal: Minimal, if any flow ranging from 5 to 7 cm/s; monophasic waveforms Minimal, if any flow is identified within the runoff vasculature. However, there is questionable reconstitution at the level of the dorsalis pedis with a peak systolic velocity of 17.9 cm/s and monophasic low resistance arterial waveforms. Superficial soft tissues show no suspicious abnormality. Additionally, there are no obvious collateral arterial vessels identified within the calf. IMPRESSION: Overall, findings are compatible with significant left lower extremity outflow/runoff disease, with significantly diminished flow and/or occlusion of the femoral profunda, superficial femoral, and popliteal arteries, as above described. Likewise, there is no significant flow identified within the runoff vasculature. Suspected reconstitution at the level of the dorsalis pedis artery. Comment: These findings were reported to Dr. Krishna at the time of the examination by the performing registered systems technologist ([email or web address]).
[2020-08-07 02:10] VITALS: BP 137/90
== END 2020-08-07 01:55 | disposition short-term general hospital (02) ==
LOC: ER 14:13
DX: I77.1 Stricture of artery (principal); I62.00 Nontraumatic subdural hemorrhage, unspecified; M79.605 Pain in left leg; I48.91 Unspecified atrial fibrillation; R51.9 Headache, unspecified; Z88.8 Allergy status to other drugs, medicaments and biological substances; Z79.899 Other long term (current) drug therapy; Z79.84 Long term (current) use of oral hypoglycemic drugs; I10 Essential (primary) hypertension; E11.9 Type 2 diabetes mellitus without complications
CPT/HCPCS: 93005; 96376; 99285; 96374; 96375; 36415; 85025; 85610; 85730; 80053; 84484; 93926; 71045; 93010; J2270; J2405

== ENCOUNTER → 2020-08-06 | Outpatient (CLI) | payer MEDICARE, MEDICAID ==
--- NOTE | 2020-08-06 15:38 | RADIOLOGY REPORT (SQ) ---
EXAM DESCRIPTION: CT HEAD WITHOUT IMAGES COMPLETED DATE/TIME: 08/06/2020 2:19 pm REASON FOR STUDY: CHRONIC SUBCURAL HEMATOMA I62.03 NONTRAUMATIC CHRONIC SUBDURAL HEMORRHAGE COMPARISON: 07/22/2020 TECHNIQUE: Axial images acquired through the brain without intravenous contrast. Images reviewed wi th bone, brain and subdural windows. Additional sagittal and coronal reconstructions were generated. Images stored on PACS. All CT scanners at this facility use dose modulation, iterative reconstruction, and/or weight based d osing when appropriate to reduce radiation dose to as low as reasonably achievable (ALARA). [facility]: Dose Right [facility]: CareDose [facility]: Dose Right [facility]: Teradose 4D [facility]: Smart [employer] RADIATION DOSE: CT Rad equipment meets quality standard of care and radiation dose reduction techniq ues were employed. CTDIvol: 48.8 mGy. DLP: 860 mGy-cm. mGy. LIMITATIONS: None. FINDINGS: VENTRICLES: Stable in size and contour. CEREBRUM: Interval increase in size of the mixed attenuation high left-sided holo hemispheric subdura l hematoma which measures up to 1.6 cm maximally, previously 1.3 cm (series 501, image 34). There is associated local mass effect and sulcal effacement with approximately 6 mm of left to right midline shift (series 2, image 18). No evidence of acute large vascular territory infarct. No intracranial mass. CEREBELLUM: No masses. No hemorrhage. No alteration of density. No evidence for acute infarction. EXTRAAXIAL SPACES: Left sided holo hemispheric subdural hematoma. Basal cisterns remain patent. ORBITS AND GLOBE: No intra- or extraconal masses. Normal contour of globe without masses. Prior cat aract surgery. CALVARIUM: No fracture. PARANASAL SINUSES: No fluid or mucosal thickening. SOFT TISSUES: No mass or hematoma. OTHER: No other significant finding. IMPRESSION: Interval increase in size of the mixed density left-sided holo hemispheric subdural babak shana measuring up to 1.6 cm maximally, previously 1.3 cm. Associated local mass effect and left to r ight midline shift measuring 6 mm. Basal cisterns remain patent. Findings reported to [facility] at 1531 hours on 08/06/2020. EVIDENCE OF ACUTE STROKE: NO. COMMENT: Quality ID # [id number]: Final reports with documentation of one or more dose reduction techniques (e.g., Automated exposure control, adjustment of the mA and/or kV according to patient size, use of iterative reconstruction technique) TECHNICAL DOCUMENTATION: JOB ID: [id number] 2010 [employer]- All Rights Reserved Reading location - IP/workstation name: [email or web address]
== END ==
LOC: RAD 13:21
PROVIDERS: ATTEND Physician Assistant Surgical
DX: I62.03 Nontraumatic chronic subdural hemorrhage (principal)
CPT/HCPCS: 70450